=== PATIENT | female | born 1955 | race Caucasian/White ===

== ENCOUNTER 2018-01-03 14:54 | Outpatient (CLI) | payer OTHER ==
--- NOTE | 2018-01-03 15:50 | RAD ---
CHEST TWO VIEWS: 01/03/18 HISTORY: Dyspnea. FINDINGS: 12/07/16. FINDINGS: The cardiac silhouette remains upper limits of normal. Pulmonary vasculature is unremarkable. Mediast inum is midline. No confluent air space consolidation, pneumothorax or pleural fluid are apparent. IMPRESSION: No active cardiopulmonary abnormalities were demonstrated. POS: [facility]
== END 2018-01-03 14:55 | disposition home or self-care (01) ==
LOC: RAD-FRANK 14:54
PROVIDERS: ATTEND Nurse Practitioner Family
DX: R06.02 Shortness of breath (principal)
CPT/HCPCS: 71046

== ENCOUNTER 2018-09-02 13:41 | Observation (INO) | payer SELFPAY ==
[2018-09-02] MEDS ORDERED: Sodium Chloride 0.9% 1,000 ML IV SCH (14:00)
[2018-09-02 14:42] LABS: #Basophils 0.1 thou/uL (0.0-0.2); #Lymphocytes 1.3 thou/uL (1.20-3.40); #Monocytes 0.4 thou/uL (0.11-0.59); #Neutrophils 5.3 thou/uL (1.40-6.50); %Basophils 0.8 % (0.0-1.0); %Eosinophils 0.4 % (0.0-10.0); %Monocytes 5.8 % (0.0-10.0); %Neutrophils 74.9 % (42.0-75.0); Hemoglobin 10.4 g/dL (12.0-16.0); Mean Corpuscular HGB CONC 31.3 g/dL (32.0-36.0); Mean Corpuscular Hemoglobin 25.7 pg (27.0-31.0); Mean Corpuscular Volume 81.9 fL (78.0-98.0); Mean Platelet Volume 8.3 fL (7.4-10.4); Platelet Count 250 thou/uL (130-400); RBC Distribution Width 13.3 % (11.5-14.5); Red Blood Cell (RBC) Count 4.05 mill/uL (4.20-5.40); White Blood Cell (WBC) Count 7.1 thou/uL (4.8-10.8)
[2018-09-02 14:57] LABS: Anion Gap 13 mmol/L (10-20); BUN (Urea Nitrogen) 6 mg/dL (9.8-20.1); Calc. Creatinine Clearance 0 mL/min (70-130); Calcium 8.5 mg/dL (7.8-10.44); Carbon Dioxide 25 mmol/L (23-31); Chloride 106 mmol/L (98-107); Estimated GFR-MDRD 79; Glucose 101 mg/dL (80-115); Potassium 3.7 mmol/L (3.5-5.1); Sodium 140 mmol/L (136-145)
[2018-09-02 15:58] VITALS: BMI 25.2
[2018-09-02] MEDS ORDERED: Chloraseptic Spray 180 ml Bottle PO PRN (16:16)
--- NOTE | 2018-09-02 16:25 | PDOC.EVN ---
Event Note - Event Note Event Note: H&P dictated #[id number]
[2018-09-02] MEDS ORDERED: Azithromycin 500 MG in Sodium Chloride 0.9% 250 ML 250 ML IVPB SCH (17:00)
[2018-09-02] MEDS: Famotidine 20 MG TAB PO SCH (20:40)
--- NOTE | 2018-09-02 20:56 | CT ---
CT OF NECK PERFORMED WITH INTRAVENOUS CONTRAST ENHANCEMENT: 09/02/18 HISTORY: Throat cancer. Difficulty swallowing and pain. The visualized brain parenchyma appears unremarkable. The thyroid gland appears to be absent. The par otid and submandibular glands are normal in appearance. There is some subcentimeter nonspecific bilat eral jugular chain nodes. Left sided neck asymmetry as compared to the right. The left sternocleidoma stoid muscles smaller than the right. There is paramediastinal symmetric parenchymal changes in both lung apices. This appears to be related to scarring, possibly on the basis of postradiation. Vocal cord region is unremarkable. Parapharyngeal spaces and tonsillar regions appear unremarkable. IMPRESSION: 1. No acute findings of the neck. 2. Bilateral symmetric upper lobe paramediastinal parenchymal lung changes which appear to be on the basis of scar possibly post radiation. POS: [facility]
--- NOTE | 2018-09-02 23:41 | HP ---
ADMITTING COMPLAINT: Sore throat and dysphagia. HISTORY OF PRESENT ILLNESS: This is a 62-year-old female, admitted to the hospital, complaining of difficulty swallowing. She states that she started having difficulty swallowing with foods and solids first and then went to water as well. Denies any sick contacts. No other complaints. No nausea, vomiting, diarrhea, constipation, chest pain, fevers, chills, or shortness of breath. The patient does admit that when she touches her throat on the left side, it does hurt and when she takes her chin to her chest that hurts. The patient states that she has also had a drip in the back of her throat. The patient also admits to past medical history of thyroid cancer with complete thyroidectomy in 2000, then having similar symptoms back then. The patient otherwise states that prior to a few days back she never had these symptoms before. REVIEW OF SYSTEMS: All systems reviewed, pertinent positives in the HPI, otherwise negative. PAST MEDICAL HISTORY: Positive for thyroid cancer, hypertension, and thyroidectomy. ALLERGIES: PENICILLIN, ANAPHYLAXIS; IBUPROFEN, SYNCOPE. HOME MEDICATIONS: Lisinopril and levothyroxine. SOCIAL HISTORY: No drinking. No alcohol. PHYSICAL EXAMINATION: VITAL SIGNS: Blood pressure is 108/80, respiratory rate of 20, temperature of 98, heart rate of 88. GENERAL: No acute distress. HEENT: Positive tenderness in the left submandibular tonsil. Oral cavity appears moist. Posterior pharynx appears erythematous with a postnasal drip. Normal dentition. LUNGS: Clear to auscultation bilaterally. No respiratory distress. HEART: Regular rate and rhythm. S1 and S2. No murmurs, rubs, or gallops appreciated. ABDOMEN: Positive bowel sounds. Soft, nontender. EXTREMITIES: 2+ peripheral pulses. No edema. LABORATORY DATA: CBC; hemoglobin at 10.4, otherwise normal. Basic metabolic panel normal. ASSESSMENT: 1. Tonsillitis versus dysphagia secondary to postoperative changes from prior thyroidectomy. 2. Anemia. 3. Postnasal drip. PLAN: 1. At this point in time, we are going to start the patient on Chloraseptic spray as well as IV azithromycin, will transition to a Z-Ben upon the time of discharge. 2. We will get a barium swallow to make sure that she is not having any aspiration, confirm all food particles going straight to the stomach, not elsewhere. 3. GI has been consulted. Case discussed with GI. We will hold off on endoscopy for now. 4. SCDs for DVT prophylaxis. We will also provide Pepcid for GI prophylaxis. 5. The patient states that she is preferred to take care as outpatient if possible. At this point of time, we will do a barium swallow, provide the patient with the Z-Ben upon the time of discharge as well as Chloraseptic spray and symptomatic management likely her tonsillitis should improve in about 5 to 6 days. The patient advised that if she did not improve post completion of antibiotic course, she should follow up with outpatient PCP and arrange for an ENT evaluation for possible peritonsillar abscess or tonsillar abscess. 6. Case and plan discussed with the patient at length, she understands and agrees with this plan. Job ID: [id number]
[2018-09-02] MEDS ORDERED: Dextrose 5 %-0.45 % NaCl 1,000 ML IV SCH (23:59)
[2018-09-03 05:24] LABS: Iron 62 ug/dL (50-170); Iron Binding Capacity, Total 360 mcg/dL (265-497)
[2018-09-03] MEDS ORDERED: Acetaminophen 650 MG/20.3 ML UDCUP PO PRN (07:33)
--- NOTE | 2018-09-03 07:35 | PDOC.EVN ---
Event Note - Event Note Event Note: CT neck findings reviewed, no tonsillar abscess noted, will await modified barium swallow to make sure there is no aspiration, if none present can go home with z-pack today likely, case d/w GI yesterday evening, patient stated she'll complete the abx regimen and if symptoms worsen will see her PCP out patient to have an ENT evaluation.
[2018-09-03 07:59] VITALS: TEMP 98.3
[2018-09-03] MEDS ORDERED: Iron, Sodium Ferric Gluconate 250 MG in Sodium Chloride 0.9% 100 ML IVPB SCH (08:00)
[2018-09-03] MEDS: Famotidine 20 MG TAB PO SCH (10:48)
--- NOTE | 2018-09-03 11:44 | RAD ---
BIPHASIC ESOPHAGRAM: Date: 09/03/18 HISTORY: Dysphagia. FINDINGS: There is unobstructed flow of contrast through the esophagus and into the stomach. No ulcer, strictur e, mass, or diverticulum is seen. Mild tertiary contractions are seen. No GE reflux demonstrated duri ng Valsalva maneuver. IMPRESSION: Mild presbyesophagus. POS: [facility]
[2018-09-03 12:06] VITALS: BP 132/73
--- NOTE | 2018-09-03 16:51 | CON ---
DATE OF CONSULTATION: REASON FOR CONSULT: Dysphagia and odynophagia. HISTORY OF PRESENT ILLNESS: Ms. Saini is a 62-year-old, who presented to the emergency room yesterday with complaints of dysphagia for about 2 weeks. She states that she has been able to drink liquids, but for about the past two weeks she has had of issues with difficulty swallowing solids and even mashed potatoes as it felt like they are stuck in the throat area. She is able to drink liquids fine. She reported also that she will have burning-like pain in the throat when she tries to swallow. She has had no fever or chills. She notes she has had some issues with tonsil problems in the past. The patient did have a history of thyroid cancer many years ago that was treated with surgery, local radiation, and chemo, and then I-131, this was in [place]. This has never been evaluated in this area. She had no problems with strictures or dysphagia in the past. The hospitalist saw her and told me that he thought maybe she had tonsillitis as she has had some pain in the left side. She states she intermittently does get tonsillitis, but she has not had this kind of problem before. She is not having any choking with swallowing. She had a CAT scan of the neck last night, that was when the hospitalist evaluated her. She had tenderness in her left side of her neck. There were no acute findings in the bilateral upper lobe and lung changes with scar from radiation in the past. There were some subcentimeter bilateral jugular chain nodes, left-sided neck asymmetry compared to the right with loss of musculature, but no overt masses or tumors. This morning, she underwent a barium swallow, which was reported by Dr. Zarate as normal except for mild presbyesophagus. The patient is tolerating liquids well now. She was started empirically on antibiotics. PAST MEDICAL HISTORY: 1. Thyroid cancer, unclear type with treatment as noted above. 2. Hypertension and also some reflux. PAST SURGICAL HISTORY: Thyroidectomy. ALLERGIES: PENICILLIN CAUSED ANAPHYLAXIS. IBUPROFEN SYNCOPE. HOME MEDICATIONS: 1. Lisinopril. 2. Levothyroxine. SOCIAL HISTORY: No drinking or alcohol. REVIEW OF SYSTEMS: Negative for stridor, difficulty breathing or shortness of breath. No swelling, tongue swelling, mouth swelling, palpitations, chest pain, dyspnea, weight loss, hematemesis, melena, hematochezia. PRESENT MEDICATIONS: 1. Acetaminophen. 2. Zithromax. 3. Pepcid. 4. Topical spray. PHYSICAL EXAMINATION: HEENT: Oropharynx, I do not appreciate any overt tonsillitis or swelling in throat, ulcers, or erosions NECK: There is some tenderness on the left side with no overt mass palpated. There is no evidence of adenopathy. There is some scarring and atrophy of the muscle consistent with prior history of surgery and radiation. Thyroid is nonpalpable. There is no supra or infraclavicular adenopathy. Supple. Full range of motion is noted. LUNGS: Clear. HEART: Regular or murmurs. ABDOMEN: Soft, nontender. There is no palpable hepatosplenomegaly. EXTREMITIES: No clubbing, cyanosis, or edema. LABORATORY DATA: White count 7.1, hemoglobin 10.4, MCV 81, platelet count 250. INR 1.5. Basic metabolic profile normal. Iron 62, TIBC 360. Ferritin is low at 6.4. TSH . ASSESSMENT: Oropharyngeal dysphagia with some odynophagia. This could be related to infection although I see no signs of viral infection. She has not been on recent antibiotics to explain any type of Marilyn and I see no evidence of that. The whirley operator thought maybe she had a component of tonsillitis and they are treating her for that empirically presently. She is tolerating liquids now. I have given her options regarding the ENT evaluation and EGD, but she wants to go ahead and go home as the [place] is coming. She will see ENT in the outpatient setting. I have asked her to follow up with me in the office in a few weeks if symptoms persist. I think that she probably needs upper and lower endoscopy with regard to her microcytic anemia. Job ID: [id number]
--- NOTE | 2018-09-03 22:48 | DIS ---
DATE OF ADMISSION: 09/02/2018 DATE OF DISCHARGE: 09/03/2018 PRIMARY CARE PHYSICIAN: None. CONSULTANTS: Dr. Bain from GI. PROCEDURES: The patient had a soft tissue of the neck, which showed no acute findings of the neck. Bilateral symmetric upload, paramedial, parenchymal lung changes with appeared to be at bases of scar, possibly postradiation. The patient also had barium swallow x-ray, which showed an obstructive flow of contrast to the esophagus and into the stomach. No ulcer, stricture, mass or diverticulum was seen. Mild tertiary contractions are seen. No GE reflux demonstrated during Valsalva maneuver. HOSPITAL COURSE: Ms. Saini is a very pleasant 62-year-old female, who was admitted to the emergency room after presenting to the ER for difficulty of swallowing. The patient reports that she initially started having difficulty swallowing food, solid food first and then liquids became more difficult. She denies any sick contacts. She denied any nausea, vomiting, diarrhea, or constipation. Denies any fevers or chills. Does admit that when she touches the throat on the left side, it does hurt. Reports that she had a sore throat about a week ago started gargling. Initially, the throat felt better and then the trouble swallowing rebounded within the next 48 hours. The patient also reports past medical history of thyroid cancer with complete thyroidectomy in 2000, and states that it was within the lymph nodes around the thyroid and she had radiation, reports she has been in remission since that point. The patient had the above tests, was started on antibiotics, and denies any current distress. On the day of discharge, admitting physician discussed possibility of going home on antibiotics and following up with PCP, which she was agreeable too. Dr. Bain saw the patient on day of discharge and agreed with antibiotics, PCP, and possible ENT referral. Lab work was unremarkable, although her ferritin was 6.43 and we ordered a ferritin IV piggyback for her, but she declined it stating that she has had these in the past and they always make her feel very ill. She prefers to continue her iron and then follow up with her primary care. The patient's vital signs have remained stable. The patient was discharged with a prescription for azithromycin. DISCHARGE DIAGNOSES: 1. Tonsillitis/pharyngitis versus dysphagia secondary to postoperative changes. 2. Anemia. 3. Postnasal drip. REVIEW OF SYSTEMS: The patient was evaluated prior to discharge. Denies any complaints. Reports that her throat is still somewhat sore, especially on the left side. Denies any fever or chills. Denies any headaches, cough, congestion, chest pain, shortness of breath, abdominal pain, or dysuria. All other systems were reviewed and are negative unless mentioned in the hospital course. PHYSICAL EXAMINATION: VITAL SIGNS: Temperature 97.6, pulse is 62, blood pressure 126/64, respirations 18, and pulse ox is 97% on room air. CONSTITUTIONAL: The patient appears nontoxic, in no apparent distress. HEENT: Head is atraumatic and normocephalic. ENT; pharynx is nonerythematous. No exudates are noted. Tonsil exam is normal. NECK: Normal. Trachea is midline. Mild tenderness to the left side of the anterior neck. RESPIRATORY/CHEST: Breath sounds are clear. No wheezing. No rales. Chest expansion is symmetrical. CARDIOVASCULAR: Heart with a regular rate and rhythm. Heart sounds are normal. ABDOMEN: Nontender on palpation. Bowel sounds are normal. BACK: Normal. No tenderness. No CVA tenderness. EXTREMITIES: Upper extremity; normal inspection, normal range of motion, pulses are equal bilaterally. Lower extremity; normal inspection, normal range of motion, normal strength. Pedal pulses are normal bilaterally. No edema is noted. NEUROLOGIC: No focal, sensory, or motor deficits are noted. Speech is normal. The patient is alert to person, place, and time. SKIN: Warm, dry, and normal in color. PSYCHIATRIC: Has a normal affect. MEDICATIONS: The patient will be continued on her home medications which include; 1. Nexium 20 mg p.o. daily. 2. Levothyroxine 100 mcg p.o. daily. 3. Lisinopril 10 mg p.o. at bedtime. 4. She was discharged home with a Z-Ben. ALLERGIES: PENICILLINS AND IBUPROFEN. CONDITION ON DISCHARGE: The patient's condition is stable. DISPOSITION: The patient was discharged to home. DISCHARGE INSTRUCTIONS: The patient should establish primary care and see them within a week. The patient reports that she has seen Dr. Lauren in the past week. It is recommended that she make a followup appointment with Dr. Lauren within the next week. Job ID: [id number]
== END 2018-09-03 12:56 | disposition home or self-care (01) ==
LOC: SCSER 13:41 → 2SW 15:34 → INTOOBSV 15:34
PROVIDERS: ADMIT Internal Medicine; ATTEND Internal Medicine
DX: R13.12 Dysphagia, oropharyngeal phase (principal); E89.0 Postprocedural hypothyroidism; D64.9 Anemia, unspecified; K21.9 Gastro-esophageal reflux disease without esophagitis; Z85.850 Personal history of malignant neoplasm of thyroid; I10 Essential (primary) hypertension; Z79.899 Other long term (current) drug therapy; Z88.0 Allergy status to penicillin; Z88.8 Allergy status to other drugs, medicaments and biological substances
CPT/HCPCS: 36415; 70491; 74220; 80048; 82728; 83540; 83550; 85025; 96365; 99284; G0378; J0456; J2916; J7050

== ENCOUNTER 2018-09-26 10:18 | Day surgery (SDC) | payer OTHER, SELFPAY ==
[2018-09-25 16:52] VITALS: BMI 23.6
[2018-09-26] MEDS ORDERED: PROPOFOL 200 MG/20 ML VIAL ONE (13:55)
--- NOTE | 2018-09-26 22:27 | OP ---
DATE OF PROCEDURE: 09/26/2018 PREOPERATIVE DIAGNOSES: 1. History of previous radiation therapy to the throat for a throat cancer. 2. Worsening dysphagia over the past several months, mild weight loss. 3. Normal upper GI with normal barium swallow on 09/03/2018, reported mild presbyesophagus. 4. CT scan of the neck soft tissue 09/02/2018, no acute findings, no masses. POSTOPERATIVE DIAGNOSES: 1. 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 2. No overt stricture in the proximal esophagus. Dilatation was performed with 9 mm, then 15 mm, then 18 mm dilators over a guidewire. There was some mucosal disruption with the 18 mm dilator. RECOMMENDATIONS: 1. PPI therapy. 2. If symptoms persist, consider speech therapy evaluation. 3. Follow up in my office in 3 weeks. ANESTHESIA: TIVA. PROCEDURE IN DETAIL: The patient was informed of the risks, benefits, and possible complications of endoscopy including perforation, reaction to medication and aspiration, and informed consent was obtained. The patient was brought to the endoscopy suite, where she was sedated in the gradual fashion. Once she was comfortable, a bite block was placed into her oropharynx. The endoscope was advanced to the esophagus, stomach, and second and third portion of the duodenum. It was little bit difficult to get the endoscope past the pharynx and into the esophagus with some manipulation, this was achieved. There were no tight strictures in the proximal esophagus and distal esophagus appeared normal. The mid-esophagus appeared normal. The stomach was normal in forward and retroflexed views. The duodenum was normal at third portion. A guidewire was placed through the scope and into the stomach and the scope was taken off. This dilatation was performed with 9 mm dilator with no real resistance noted and then a 15 mm dilator with no resistance noted. Second-look showed no effect. We then dilated with an 18 mm dilator over the guidewire and second-look showed disruption of mucosa at the upper esophageal sphincter region. There was no bleeding. There were no signs of perforation. The scope and wire were removed. The patient tolerated the procedure well with no complications. Job ID: [id number]
== END 2018-09-26 15:15 | disposition home or self-care (01) ==
LOC: SDC 10:18
PROVIDERS: ATTEND Internal Medicine Gastroenterology
PROC: 0D758ZZ Dilation of Esophagus, Via Natural or Artificial Opening Endoscopic (ICD-10-PCS; principal; 2018-09-26)
DX: R13.10 Dysphagia, unspecified (principal); K22.8 Other specified diseases of esophagus; J39.2 Other diseases of pharynx; K21.9 Gastro-esophageal reflux disease without esophagitis; I10 Essential (primary) hypertension; D64.9 Anemia, unspecified; Z87.891 Personal history of nicotine dependence; Z88.0 Allergy status to penicillin; Z88.6 Allergy status to analgesic agent; Z79.899 Other long term (current) drug therapy
CPT/HCPCS: J2704

== ENCOUNTER 2018-10-26 08:40 | Outpatient (CLI) | payer OTHER | END 2018-10-26 08:41 | disposition home or self-care (01) | PROVIDERS: ATTEND Internal Medicine Gastroenterology | DX: R13.10 Dysphagia, unspecified (principal); C73 Malignant neoplasm of thyroid gland | CPT/HCPCS: 74230 ==

== ENCOUNTER 2019-09-14 10:23 | Outpatient (CLI) | payer MEDICARE ==
--- NOTE | 2019-09-14 10:59 | MMO ---
Bilateral MAMMO Bilat Screen [facility]. CLINICAL HISTORY: Patient is 63 years old and is seen for screening. The patient has the following family history of breast cancer: mother, at age 43, malignant (generic). The patient has a history of other cancer. The patient has a history of left Excisional Biopsy in 1986 - benign - MOLE WAS REMOVED. VIEWS: The views performed were: bilateral craniocaudal with tomosynthesis; bilateral mediolateral oblique with tomosynthesis; and bilateral exaggerated craniocaudal. This study has been interpreted with the assistance of computer-aided detection. MAMMOGRAM FINDINGS: The breasts are heterogeneously dense, which could obscure a lesion on mammography. There are vascular calcifications seen in both breasts. There are no suspicious masses, suspicious calcifications, or new areas of architectural distortion. IMPRESSION: THERE IS NO MAMMOGRAPHIC EVIDENCE OF MALIGNANCY. A ROUTINE FOLLOW-UP MAMMOGRAM IN 1 YEAR IS RECOMMENDED. THE RESULTS OF THIS EXAM WERE SENT TO THE PATIENT. ACR BI-RADS Category 2 - Benign finding MAMMOGRAPHY NOTE: 1. A negative mammogram report should not delay a biopsy if a dominant of clinically suspicious mass is present. 2. Approximately 10% to 15% of breast cancers are not detected by mammography. 3. Adenosis and dense breasts may obscure an underlying neoplasm. Reported by: MONTSE RAMIRES MD Electonically Signed: [id number]
== END 2019-09-14 10:24 | disposition home or self-care (01) ==
LOC: BICMAMMO 10:23
PROVIDERS: ATTEND Nurse Practitioner Family
DX: Z12.31 Encounter for screening mammogram for malignant neoplasm of breast (principal); Z91.89 Other specified personal risk factors, not elsewhere classified; Z85.89 Personal history of malignant neoplasm of other organs and systems; Z80.3 Family history of malignant neoplasm of breast
CPT/HCPCS: 77063; 77067

== ENCOUNTER 2020-09-17 15:06 | Outpatient (CLI) | payer MEDICARE ==
--- NOTE | 2020-09-17 15:19 | RAD ---
EXAM: Two views chest PROVIDED CLINICAL HISTORY: Cough. COMPARISON: 01/03/2018. FINDINGS: Cardiac silhouette is at the upper limits normal in size. Pulmonary vasculature is within normal limi ts. There is a faint nodular density overlying right lung base which may actually represent a nipple shadow. There is asymmetric pleural thickening at the medial aspect of each lung apex slightly greater on the left. This is a stable finding and also seen chest x-ray on 12/07/2016. Lungs are otherwise clear. No other interval change. IMPRESSION: Nodular density overlying right lung base which may represent overlying nipple shadow. Follow-up PA c hest x-ray with nipple markers in place is recommended..
== END 2020-09-17 15:07 | disposition home or self-care (01) ==
LOC: RAD-FRANK 15:06
PROVIDERS: ATTEND Nurse Practitioner Family
DX: R05 Cough (principal); J98.4 Other disorders of lung
CPT/HCPCS: 71046

== ENCOUNTER 2021-02-23 10:15 | Outpatient (CLI) | payer MEDICARE | END 2021-02-23 10:16 | disposition home or self-care (01) | LOC: RAD-FRANK 10:15 | PROVIDERS: ATTEND Nurse Practitioner Family | DX: R06.02 Shortness of breath (principal) | CPT/HCPCS: 71046 ==